=== PATIENT | male | born 1960 | race Two or more races ===

== ENCOUNTER 2020-09-10 02:28 | Emergency (ER) | payer MEDICAID ==
[~2020-09-10] VITALS: Ht 172.7 cm; Wt 72.6 kg
[2020-09-10] MEDS ORDERED: Tetanus/Diptheria/Pertussis IM ONE (02:45)
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
[2020-09-10] MEDS ORDERED: Lidocaine 1% Plain 30 ml INJ ONE (03:00)
[2020-09-10] MEDS ORDERED: Hydrogen Peroxide 473ml Bottle TOPIC ONE (03:00)
[2020-09-10 03:08] VITALS: BP 154/78
[2020-09-10] MEDS ORDERED: CEPHALEXIN500 MG ORAL (03:29)
[2020-09-10] MEDS ORDERED: BACITRACIN15 GM TOPIC (03:29)
[2020-09-10] MEDS ORDERED: Bacitracin Oint UD TOPIC ONE (03:30)
--- NOTE | 2020-09-10 03:58 | Diagnostic Imaging Report ---
EXAM: CT Head Without Intravenous Contrast CLINICAL HISTORY: INJ TECHNIQUE: Axial computed tomography images of the head/brain without intravenous contrast. CTDI is 53.4 mGy and DLP is 1045.5 mGy-cm. One or more of the following dose reduction techniques were used: automated exposure control, adjustment of the mA and/or kV according to patient size, use of iterative reconstruction technique. COMPARISON: No relevant prior studies available. FINDINGS: Brain: Unremarkable. No hemorrhage. No significant white matter disease. No edema. Ventricles: Unremarkable. No ventriculomegaly. Bones/joints: Unremarkable. No acute fracture. Soft tissues: Unremarkable. Sinuses: Unremarkable as visualized. No acute sinusitis. Mastoid air cells: Unremarkable as visualized. No mastoid effusion. IMPRESSION: No evidence of acute intracranial process. Paranasal sinuses and mastoids are clear.
--- NOTE | 2020-09-10 04:00 | Diagnostic Imaging Report ---
EXAM: CT Cervical Spine Without Intravenous Contrast CLINICAL HISTORY: INJ TECHNIQUE: Axial computed tomography images of the cervical spine without intravenous contrast. CTDI is 20.2 mGy and DLP is 493 mGy-cm. One or more of the following dose reduction techniques were used: automated exposure control, adjustment of the mA and/or kV according to patient size, use of iterative reconstruction technique. COMPARISON: No relevant prior studies available. FINDINGS: Vertebrae: Unremarkable. No acute fracture. Discs/spinal canal/neural foramina: There is mild focal degenerative disc disease at C5-6 with generalized disc bulging osteophytosis producing severe bilateral neural foraminal stenosis no focal disc extrusion or central spinal stenosis identified. Soft tissues: Unremarkable. IMPRESSION: Mild cervical spondylosis without acute fracture or malalignment.
--- NOTE | 2020-09-10 04:04 | Diagnostic Imaging Report ---
EXAM: CT Maxillofacial Without Intravenous Contrast CLINICAL HISTORY: INJ TECHNIQUE: Axial computed tomography images of the face without intravenous contrast. CTDI is 15.3 mGy and DLP is 381.4 mGy-cm. One or more of the following dose reduction techniques were used: automated exposure control, adjustment of the mA and/or kV according to patient size, use of iterative reconstruction technique. COMPARISON: No relevant prior studies available. FINDINGS: Bones/joints: No acute fracture. Soft tissues: There is mild soft tissue swelling about the right orbit and cheek. Orbits: Unremarkable. Sinuses: Unremarkable. No air-fluid levels. IMPRESSION: No acute facial fracture.
[2020-09-10] MEDS ORDERED: ROBAXIN-750750 MG PO (04:06)
[2020-09-10] MEDS ORDERED: TYLENOL EXTRA500 MG ORAL (04:06)
[2020-09-10] MEDS ORDERED: IBUPROFEN600 M1 ORAL (04:06)
[2020-09-10] MEDS ORDERED: LIDODERM700 M1 TOPIC (04:06)
[2020-09-10 04:35] VITALS: BP 149/75
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
== END 2020-09-10 04:35 | disposition home or self-care (01) ==
LOC: EMR 02:55
DX: S01.111A Laceration without foreign body of right eyelid and periocular area, initial encounter (principal); S60.211A Contusion of right wrist, initial encounter; Y04.2XXA Assault by strike against or bumped into by another person, initial encounter; Y93.9 Activity, unspecified; Y92.9 Unspecified place or not applicable
CPT/HCPCS: 12011; 70450; 70486; 72125; 73110; 90471; 90715; J2001; Z7502; 99284